=== PATIENT | male | born 1950 | race Caucasian/White ===

== ENCOUNTER 2017-01-24 09:57 | Observation (INO) | payer OTHER ==
[~2017-01-24] VITALS: Ht 180.3 cm; Wt 87.7 kg
[2017-01-24 10:28] LABS: ADD MIUA? YES; BILIRUBIN NEGATIVE; BLOOD MODERATE; COLOR COLORLESS ((YELLOW)); GLUCOSE (STRIP) 50; KETONES NEGATIVE; LEUKOCYTES NEGATIVE; NITRITE NEGATIVE; PROTEIN (STRIP) NEGATIVE; SPECIFIC GRAVITY 1.005 (1.000-1.030); UROBILINOGEN 0.2 MG/DL (0.2-1.0)
[2017-01-24 10:46] LABS: BACTERIA RARE /HPF; EPITHELIAL CELLS NONE SEEN /HPF; MUCUS TRACE /LPF; RED BLOOD CELLS 0-5 /HPF (0-5); UCUL ADDED? NO; WHITE BLOOD CELLS 0-5 /HPF (0-5)
[2017-01-24 11:04] LABS: EOSINOPHIL (%) 0.4 % (0-5); EOSINOPHIL COUNT 0.1 K/uL (0-0.3); IMMATURE GRANULOCYTE (%) 0.5 % (0.0-0.7); IMMATURE GRANULOCYTE COUNT 0.1 K/uL; INSTRUMENT ABS NEUTROPHIL CT 11.3 K/uL; LYMPHOCYTE COUNT 0.8 K/uL (1.0-2.8); MCH 30.2 PG (29.0-34.0); MCHC 34.1 G/DL (30.0-36.0); MCV 88.7 FL (86-99); MEAN PLAT.VOLUME 10.2 uM^3 (9.0-12.4); MONOCYTE (%) 10.4 % (3-12); MONOCYTE COUNT 1.4 K/uL (0-0.8); NEUTROPHIL (%) 82.3 % (45-76); NEUTROPHIL COUNT 11.3 K/uL (1.8-6.4); PLATELET COUNT 257 K/uL (156-360); RBC DIS.WIDTH-CV 13.1 % (11.8-14.6); RBC DIS.WIDTH-SD 42.6 % (39-53); RED BLOOD COUNT 4.96 M/uL (4.00-5.50); WHITE BLOOD COUNT 13.8 K/uL (4.1-10.2)
[2017-01-24 11:17] LABS: CHLORIDE 105 mEq/L (99-109); POTASSIUM 3.8 mEq/L (3.7-5.4); SODIUM 138 mEq/L (136-147)
[2017-01-24 11:19] LABS: GLUCOSE 104 mg/dL (70-99)
[2017-01-24 11:20] LABS: ANION GAP 12 MEQ/L (2-14)
[2017-01-24 11:21] LABS: TOTAL BILIRUBIN 1.1 mg/dL (0.0-1.0)
[2017-01-24 11:23] LABS: ALKALINE PHOSPHATASE 80 IU/L (3-129); GFR ESTIMATE (CALCULATED) 54 mL/min/
[2017-01-24 11:24] LABS: UREA NITROGEN (BUN) 17 mg/dL (9-23)
[2017-01-24 11:26] LABS: LIPASE 12 U/L (1.0-51.0)
[2017-01-24] MEDS ORDERED: ATORVASTATIN CA20 MG PO (12:29)
[2017-01-24] MEDS ORDERED: AMLODIPINE-BEN1 EACH PO (12:29)
[2017-01-24] MEDS ORDERED: BENADRYL50 MG PO (12:30)
[2017-01-24] MEDS ORDERED: LOW DOSE ASPIRI81 M1 PO (12:31)
[2017-01-24 19:00] VITALS: BP 151/72
[2017-01-24 23:40] VITALS: BP 128/61
[2017-01-25 04:33] VITALS: BP 136/58
[2017-01-25 07:26] LABS: HEMATOCRIT 35.5 % (38.0-50.0); MCH 30.5 PG (29.0-34.0); MCHC 33.5 G/DL (30.0-36.0); MEAN PLAT.VOLUME 10.1 uM^3 (9.0-12.4); PLATELET COUNT 190 K/uL (156-360); RBC DIS.WIDTH-CV 13.6 % (11.8-14.6); RBC DIS.WIDTH-SD 45.6 % (39-53); WHITE BLOOD COUNT 8.5 K/uL (4.1-10.2)
[2017-01-25 07:27] LABS: ANION GAP 7 MEQ/L (2-14); CHLORIDE 109 MEQ/L (99-109); GFR ESTIMATE (CALCULATED) > 59 mL/min/; GLUCOSE 108 mg/dL (70-99); POTASSIUM 3.8 MEQ/L (3.7-5.4); SAMPLE HEMOLYSIS CHECK 0; SAMPLE ICTERIC CHECK 0; SAMPLE LIPEMIA CHECK 0; SODIUM 142 MEQ/L (136-147); UREA NITROGEN (BUN) 12 mg/dL (9-23)
[2017-01-25 08:15] VITALS: BP 145/70
[2017-01-25] MEDS ORDERED: CEFTIN500 MG PO (11:29)
== END 2017-01-25 12:39 | disposition home or self-care (01) ==
LOC: EME 09:57 → 5WEST 12:27 → EDOF 12:27 → 5WEST 15:00
PROVIDERS: Internal Medicine; Physician Assistant
DX: N13.2 Hydronephrosis with renal and ureteral calculous obstruction (principal); N17.9 Acute kidney failure, unspecified; N39.0 Urinary tract infection, site not specified; I10 Essential (primary) hypertension; E78.5 Hyperlipidemia, unspecified; N40.0 Benign prostatic hyperplasia without lower urinary tract symptoms
CPT/HCPCS: 74000; 74176; 80048; 80053; 81003; 83605; 83690; 85025; 85027; 87040; 87086; 99281; 99285; G0103; G0378; J0696; J1170; J1644; J1885; J3010; J7030; J7050